=== PATIENT | female | born 1995 | race Caucasian/White ===

== ENCOUNTER 2016-08-10 20:13 | Outpatient (CLI) | payer OTHER ==
[2016-08-10 20:34] VITALS: BMI 23.0
[2016-08-10 21:03] LABS: SPECIFIC GRAVITY 1.015 (1.001-1.030); URINE BILIRUBIN NEGATIVE (NEGATIVE); URINE BLOOD NEGATIVE (NEGATIVE); URINE GLUCOSE (UA) NEGATIVE (NEGATIVE); URINE LEUKOCYTE ESTERASE 1+ (NEGATIVE); URINE NITRITE NEGATIVE (NEGATIVE); URINE PROTEIN NEGATIVE (NEGATIVE); URINE UROBILINOGEN NORMAL (0-1 mg/dl)
[2016-08-10 21:04] LABS: URINE APPEARANCE HAZY; URINE COLOR LIGHT YELLOW
[2016-08-10 21:21] LABS: URINE BACTERIA FEW; URINE RBC 0 /hpf
[2016-08-10] MEDS ORDERED: TERBUTALINE SULFATE 1 MG/ML VIAL SUB-Q ONE (22:47)
--- NOTE | 2016-08-11 00:54 | PDOC36 ---
Provider Note Subject: Progress Note Note: Triage: Pt called this evening about left sided pelvic pain that she has had x 1 week that progressively became worse today. She reports the pain is worse with standing. No loss of fluid or bleeding. Was seen in the office today and did not mention the pain. She reports a hx of PTL at about the same time with her first baby. She was kept overnight for monitoring and she proceeded to have a full term baby. She was placed on the monitor and noted to have regular ctxs about every 3 mins. At the beginning of the visit the left sided pain was worse. Her cervix was 2/60/-2. She was monitored for another hour and a recheck of her cervix was unchanged. However, she reports her ctxs are stronger. She remains comfortable in the bed and says she could probably sleep through her ctxs. Given that she is 34 weeks and 5 days she will receive 1 x terbutaline, 0.25mg, SQ. Side effects discussed. Will continue to watch her after the medication. Encouraged more hydration. Since her cervix has not changed during her time here she I do not suspect she is in early labor. 12:23pm - Pt is one hour s/p terbutaline and reports less painful ctxs. Her cervix is still unchanged. D/C home with instructions of when to call back. Since she is under 35 weeks we did discuss that she may have to go to [place] to deliver should she have any regular contractions that are painful. Pt verbalizes understanding. F/U in the clinic in one week. FHR cat 1, accels, no decels, moderate variability. Reactive NST
== END 2016-08-11 00:36 | disposition home or self-care (01) ==
LOC: FBCOUT 20:13 → FBC 20:13 → FBCOUT 08-11 00:36
PROVIDERS: ATTEND Advanced Practice Midwife
DX: O47.03 False labor before 37 completed weeks of gestation, third trimester (principal); Z3A.34 34 weeks gestation of pregnancy
CPT/HCPCS: 87086; 81001; 59025; 81002; J3105; G0463

== ENCOUNTER 2016-08-15 22:17 | Outpatient (CLI) | payer OTHER ==
[2016-08-15 22:34] VITALS: BMI 23.0
[2016-08-15 23:27] LABS: SPECIFIC GRAVITY 1.015 (1.001-1.030); URINE APPEARANCE CLEAR; URINE BILIRUBIN NEGATIVE (NEGATIVE); URINE BLOOD NEGATIVE (NEGATIVE); URINE COLOR LIGHT YELLOW; URINE GLUCOSE (UA) NEGATIVE (NEGATIVE); URINE LEUKOCYTE ESTERASE TRACE (NEGATIVE); URINE NITRITE NEGATIVE (NEGATIVE); URINE PROTEIN NEGATIVE (NEGATIVE); URINE UROBILINOGEN NORMAL (0-1 mg/dl)
[2016-08-15 23:41] LABS: URINE BACTERIA 0; URINE RBC 0-1 /hpf
[2016-08-16 00:03] LABS: ABSOLUTE NEUTROPHIL COUNT 7.4 K/mm3 (1.8-7.7); BASO # 0.1 K/mm3 (0.0-0.2); BASO % 0.4 % (0.2-1.0); EOS # 0.1 (0.0-0.5); EOS % 0.9 % (0.9-2.9); HEMATOCRIT 34.6 % (37.0-47.0); HEMOGLOBIN 11.8 gm/l (12.0-16.0); IMM NEUT # 0.2 K/mm3 (0-0.2); LYMPH # 2.6 (1.0-4.8); LYMPH % 23.4 % (15-45); MEAN CELL VOLUME 95.6 fl (81.0-99.0); MEAN CORPUSCULAR HEMOGLOBIN 32.6 pg (27.0-31.0); MEAN CORPUSCULAR HGB CONC 34.1 g/dl (33.0-37.0); MEAN PLATELET VOLUME 9.7 fl (7.4-10.4); MONO # 0.9 (0.0-0.8); MONO % 7.7 % (4-12); NEUT % 65.6 % (43-75); PLATELET COUNT 236 K/mm3 (130-400); RED CELL DISTRIBUTION WIDTH 12.1 % (11.5-14.5)
== END 2016-08-16 00:49 | disposition home or self-care (01) ==
LOC: FBCOUT 22:17 → FBC 22:17 → FBCOUT 08-16 00:49
PROVIDERS: ATTEND Advanced Practice Midwife
DX: O47.03 False labor before 37 completed weeks of gestation, third trimester (principal); Z3A.35 35 weeks gestation of pregnancy

== ENCOUNTER 2016-09-16 14:15 | Outpatient (CLI) | payer OTHER ==
[2016-09-16] MEDS ORDERED: OXYTOCIN 10 UNITS/ML VIAL ONE (17:00)
[2016-09-16] MEDS ORDERED: MINERAL OIL 25 ML BOT ONE (17:00)
[2016-09-16] MEDS ORDERED: LIDOCAINE 1% (PRES FREE) 30 ML VIAL ONE (17:00)
[2016-09-16] MEDS ORDERED: PUMP TUBING ONE (17:01)
[2016-09-16] MEDS ORDERED: OXYTOCIN IN LR 500 ML IV ONE (17:01)
[2016-09-16] MEDS ORDERED: LIDOCAINE Viscous 2% 15 ML UDCUP ONE (17:01)
--- NOTE | 2016-09-16 17:02 | PCMAN ---
OB Admission Note - History : 2 Term: 1 : 0 Abortions (S&E): 0 Livin Gestational Age (weeks): 40 Days (#/7): 0 Admit Cervical Dilation:: 6 Admit Cervical Effacement (%):: 80 Admit Station:: -1 Admit Presentaton:: vertex Membrane Status: Intact Contractions: Yes Contraction Frequency:: q 4, 45-60, firm Heart Rate:: 130 Status:: category 1 EFW:: 7# Summary of Course:: Started care at 20 weeks and had uncomplicated course. Started contractions earlier today and went to office for labor check- was 5/80/ -1. Arrives about 2 hours later and was 5/80/-1 so walked for an hour prior to recheck. Now 6/80/-1 and admission ordered. Plans unmedicated . GBS neg. - Labs Blood Type: A (+) positive Hct/Hgb:: 11.8 Rubella Status: Non-immune GBS Status: Negative Abnormal Labs: None - Physical Exam Psych/Mental Status: Mood/Affect Appropriate Neurological: Grossly Intact Lungs: Clear to Auscultation Bilaterally Cardiovascular: Regular Rate and Rhythm Genitourinary: Normal Female Genitalia Rectal Exam: Deferred - Problems (1) Active labor at term Status: Acute Code: [id number]/Plan: P: Anticipate .
[2016-09-16 18:05] VITALS: BMI 24.0
[2016-09-16 18:29] LABS: AMPHETAMINES/METHAMPHETAMINES NEGATIVE (NEGATIVE); COCAINE NEGATIVE (NEGATIVE); MARIJUANA NEGATIVE (NEGATIVE); METHADONE NEGATIVE (NEGATIVE); OPIATES NEGATIVE (NEGATIVE); TRICYCLIC ANTIDEPRESSANTS NEGATIVE (NEGATIVE)
--- NOTE | 2016-09-16 22:08 | PDOC36 ---
Provider Note Subject: Progress Note Note: S/ Zainab was admitted early afternoon having changed her cervix after walking to 6/80/-1. She walked around her room after admission and reported regular contractions that felt about the same as earlier in the day. At 8pm she was rechecked and her cervix was unchanged and felt more 5/70/-1. The head is well applied to the cervix and intact. We discussed that her ctxs are not changing her cervix and therefore we should consider AROM as an option or she could also opt to go home. She and her partner decided on AROM. AROM was attempted over several minutes. Unable to snag the bag which was flush against the head. No fluid noted. The patient and her partner were offered pitocin as an alternative but they declined this. Zainab was tearful and began to think she was incapable of going into labor. She was very much reassured this is not the case. She is still having ctxs, they are just not strong enough yet to get her into the active phase. We discussed that going home, seeing her daughter and letting the oxytocin flow , would be a good thing. She can sleep in her own bed. Should she start having contractions that are stronger, then she can come back anytime. Otherwise, sleep through the night and we will have a plan to go to [place] in the morning for a membrane sweep. Pt agrees to this. At time of discharge she is comfortable and not breathing through ctxs. She was offered therapeutic rest and declined. 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
== END 2016-09-16 21:57 | disposition home or self-care (01) ==
LOC: FBCOUT 14:15 → FBC 14:37 → FBCOUT 16:13 → FBC 16:14 → UNDOADMIN 16:14 → UNDODISIN 21:57 → FBCOUT 21:57
PROVIDERS: ATTEND Advanced Practice Midwife
DX: Z34.83 Encounter for supervision of other normal pregnancy, third trimester (principal); Z3A.40 40 weeks gestation of pregnancy
CPT/HCPCS: 80305; 36415; 86780; 59025; J2590 ×2; A9270 ×2; J2001; G0463

== ENCOUNTER 2016-09-18 23:38 | Inpatient (IN) | payer OTHER ==
[2016-09-19] MEDS ORDERED: OXYTOCIN 10 UNITS/ML VIAL ONE (00:04)
[2016-09-19] MEDS ORDERED: MINERAL OIL 25 ML BOT ONE (00:05)
[2016-09-19] MEDS ORDERED: LIDOCAINE 1% (PRES FREE) 30 ML VIAL ONE (00:05)
[2016-09-19] MEDS ORDERED: LIDOCAINE Viscous 2% 15 ML UDCUP ONE (00:05)
[2016-09-19] MEDS ORDERED: PUMP TUBING ONE (00:05)
[2016-09-19] MEDS ORDERED: OXYTOCIN IN LR 0 ML IV ONE (00:05)
[2016-09-19 02:22] VITALS: BMI 24.4
--- NOTE | 2016-09-19 02:28 | PCMAN ---
OB Admission Note - History : 2 Term: 1 : 0 Abortions (S&E): 0 Livin EDC:: 09/16/16 Gestational Age (weeks): 40 Days (#/7): 1 Admit Cervical Dilation:: 7 Admit Cervical Effacement (%):: 100 Admit Station:: -1 Admit Presentaton:: vertex Membrane Status: Intact Rupture (Date): 09/19/16 Rupture (Time): 00:45 Membranes Comment:: mec Labor Onset (Date): 09/18/16 Labor Onset (Time): 22:00 Contractions: Yes Contraction Frequency:: q 2-3 mins lasting 60-90 sec Heart Rate:: 135 (moderate variablility, pos accels, decels to 90s and 100s with ctx) Status:: Cat 2 EFW:: 7.5lbs Summary of Course:: Zainab is a at 40w3d who presents with spontaneous onset of contractions. She had been triaged at [facility] on 09/16 with strong contractions that down after progressing to 4-5/80%/-1. An attempt at AROM was made at that time and was unsuccessful. After more time with observation of fewer contractions and no change, she decided to go home and await onset of active labor. Membranes were swpet in the office on 09/17. Contractions began strongly at 2200 on 09/18/16. On admission, Zainab denies that her membranes are ruptured and reports an active fetus. She initiated care with the midwives at 20 weeks. Dates by unsure LMP and consistent with 20week US. Her pre- BMI was 20 and total weight gain this was 25lbs. She plans to breastfeed. This was complicated by sciatic pain and occasional marijuana use. Negative UDS at 20weeks. Did not have any genetic testing. 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 - Physical Exam General: Afebrile Psych/Mental Status: Mood/Affect Appropriate, Judgment/Insight Intact Neurological: Grossly Intact, Alert, Oriented x 4 HEENT: Atraumatic Lungs: Clear to Auscultation Bilaterally, Normal Air Movement Cardiovascular: Regular Rate and Rhythm, Normal S1, Normal S2 Genitourinary: Normal Female Genitalia Rectal Exam: Deferred Extremities: Full ROM - Problems (1) Active labor at term Status: Acute Code: [id number]/Plan: A: Undelivered at 40w3d Active Labor GBS neg Membranes intact Uncomplicated course Fetus Cat 2 for variable decels during contractions, no evidence of acidemia P: Admit to [facility] c[facility] Declines AMTSL RPR done on 09/16 was negative, no need to repeat Anticipate
[2016-09-19] MEDS ORDERED: ACETAMINOPHEN 325 MG TABLET PO PRN (02:33)
[2016-09-19] MEDS ORDERED: BENZOCAINE/MENTHOL 60 APPLIC/BOT TP PRN (02:33)
[2016-09-19] MEDS ORDERED: MAGNESIUM HYDROXIDE 30 ML UDCUP PO PRN (02:33)
[2016-09-19] MEDS ORDERED: LANOLIN 50 APPLIC/7G TUBE TP PRN (02:33)
[2016-09-19] MEDS ORDERED: CALCIUM CARBONATE 500 MG TAB.CHEW PO PRN (02:33)
[2016-09-19] MEDS ORDERED: MEASLES,MUMPS&RUBELLA VACCINE 0.5 ML VIAL SUB-Q V ONE (02:33)
[2016-09-19] MEDS: IBUPROFEN 800 MG TABLET PO SCH ×4 (02:37→22:23)
--- NOTE | 2016-09-19 02:51 | PCMDEL ---
Delivery Note - Labor 1st stage (hr/min):: 2h 27 mins 2nd stage (hr/min):: 27 mins 3rd stage (hr/min):: 5 mins Total (hr/min):: 2h 54 mins Pushed (hr/min):: 27 mins - Delivery Delivery (Date): 09/19/16 Delivery (Time): 00:54 Gender: Male Presentation: Cephalic Position: OA Umbilical Cord: 3 Vessel Delayed Cord Clamping:: > 3 min 1 Minute Total: 8 5 Minute Total: 9 Placenta:: grossly intact, shultze EBL:: 75mL Perineum:: small second degree perineal Suture:: 3-0 chromic Anesthesia/Meds:: none for labor, lidocaine for repair Length ROM:: 9 mins Comments:: First Stage: Zainab had painful prodromal contractions for several weeks. She was triaged at [facility] for several hours on 09/16 and and contractions decreased and she did not progress past 4-5cm/80%/-1 at that time. She was discharged to await onset of active labor. Onset of strong contractions that progressed to delivery was at 2200 on 09/18. She was admitted at 7/100%/-1 and labored well without pain medication as was her plan. Fetus was Cat 1 and Cat2 throughout first stage for variable decels to the 90s during contractions that resolved easily between. Membranes remained intact throughout first stage GBS neg status. She progressed easily to complete at 0027. Second Stage: Zainab pushed spontaneously in a semi reclined position. When decels to the 90s were auscultated that did not resolve between contractions, she moved easily to hands and knees. FHTs improved in this position. Zainab continued to push spontaneously in hands and knees with slow descent. A tight bulging bag was noted and AROM was discussed with Zainab. PARQ was held and AROM with moderate amount of fluid noted to be meconium stained. Zainab continued to push and the head was noted to descend and make considerable progress with contractions and then ascend in between. SLowly the head came to crown and with multiple small pushes the head delivered slowly past the borws, nose and chin. Once the entire head delivered after a pause for restiution, the turtle sign was noted and the anterior shoulder could not be palpated on assessment. Zainab was assisted to her back and it was then noted that the anterior shoulder was free, no nuchal cord. was able to restitute to ROT and delivered with a compound right hand. The rest of the body delivered easily after. Vigorous male delivered directly to maternal abdomen. Apgars 8 & 9. Weight pending. The cord ceased pulsing and was clamped and cut at 3 mins of life. 3 vessel cord. Cord blood obtained. Third stage. With signs of separation, the placenta delivered spontaneously, grossly intact , Shultze position. Fundus very firm, midline, 2 below. Very minimal bleeding noted. AMTSL was not initiated. Vaginal vault and perineum were inspected and a small second degree perineal laceration was noted. This was repaired injectable lidocaine for anesthesia with 3-0 chromic. Good approximation and hemostasis, minimal edema Post delivery count correct. Infant remained skin to skin throughout and went easily to breast within 20 minutes of delivery. Mother and in good condition and bonding well. QBL 75mL.
[2016-09-19] MEDS ORDERED: LIDOCAINE 1% (PRES FREE) 30 ML VIAL SUB-Q ONE (03:27)
[2016-09-19] MEDS: DOCUSATE SODIUM 100 MG CAPSULE PO SCH (10:03)
[2016-09-20 08:59] VITALS: BP 109/73
[2016-09-20] MEDS: DOCUSATE SODIUM 100 MG CAPSULE PO SCH (09:07)
[2016-09-20] MEDS: IBUPROFEN 800 MG TABLET PO SCH (09:32)
--- NOTE | 2016-09-20 12:24 | PDOC39B ---
Hospital Course: ADMIT DATE: 09/18/16 DISCHARGE DATE: [] ADMISSION DIAGNOSES: Active Labor PROCEDURES: HISTORY OF PRESENT ILLNESS: 21 year old G2 T1 L1 at 40 weeks 1 days presenting with active labor. HOSPITAL COURSE: The patient had an after a rapid active labor and a normal course. By day of discharge the patient is stable, well and ready to go home. - Physical Exam Vital Signs: Temp Pulse Resp BP Pulse Ox 97.6 F 82 14 109/73 09/20/16 08:49 09/20/16 08:49 09/20/16 08:49 09/20/16 08:49 General: Afebrile, No Acute Distress Psych/Mental Status: Bonding Well Neurological: Grossly Intact Breast: Soft, Nipples Intact Fundus: Firm Genitourinary: Normal Female Genitalia, Edema (Mild) Lochia: Light - Discharge Diagnosis (1) care following vaginal delivery Status: Acute - Discharge Plan Condition: Good Disposition: Home
== END 2016-09-20 13:22 | disposition home or self-care (01) | DRG 775 ==
LOC: FBCOUT 23:38 → FBC 23:38 → FBCOUT 23:55
PROVIDERS: ADMIT Advanced Practice Midwife; ATTEND Advanced Practice Midwife
PROC: 10E0XZZ Delivery of Products of Conception, External Approach (ICD-10-PCS; principal; 2016-09-19)
PROC: 0KQM0ZZ Repair Perineum Muscle, Open Approach (ICD-10-PCS; 2016-09-19)
DX: O70.1 Second degree perineal laceration during delivery (principal); Z37.0 Single live birth; O76 Abnormality in fetal heart rate and rhythm complicating labor and delivery; O77.0 Labor and delivery complicated by meconium in amniotic fluid; O62.3 Precipitate labor; Z3A.40 40 weeks gestation of pregnancy